=== PATIENT | male | born 1975 | race Caucasian/White ===

== ENCOUNTER 2016-09-13 21:36 | Emergency (ER) | payer BC ==
[2016-09-13 22:01] VITALS: BP 128/85
--- NOTE | 2016-09-13 22:49 | UC ---
Headache HPI - HPI Summary HPI Summary: The patient comes in today for: 1. Headache: Onset: 2-3 weeks ago. Palliative/provocative: Nothing makes the pain better or worse. Quality: Throbbing. Region: Upper right tooth, or right maxillary sinus area pain. Severity: 4/10 Time: Comes and goes. Associated symptoms: FEver: None. Rhinitis: None. Nasal congestion: None Epistaxis: None. Numbness: Right lateral corner of the eye. This started up today. It comes and goes. Previous treatment: He has seen a dentist x 3 in the last 10 days and the last visit was yesterday. The patient states that his dentist did not think that he had a tooth problem and the patient has been referred to an manager data warehousing (3 weeks from now). He was started on Amoxicillin last one week ago. 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 - Allergies/Home Medications Allergies/Adverse Reactions: Allergies Allergy/AdvReac Type Severity Reaction Status Date / Time Cefaclor [From [facility]] Allergy Itching Verified 09/13/16 22:01 Morphine Allergy Itching Verified 09/13/16 22:01 Home Medications: Home Medications Amoxicillin CAP* 500 mg PO TID 09/13/16 [History Confirmed 09/13/16] PMH/Surg Hx/FS Hx/Imm Hx Previously Healthy: Yes Endocrine History Of: Denies: Diabetes, Thyroid Disease, Hyperthyroidism, Hypothyroidism, Dyslipidemia Cardiovascular History Of: Denies: Cardiac Disorders, Hypertension, Pacemaker/ICD, Myocardial Infarction , Congestive Heart Failure, Atrial Fibrillation, Deep Vein Thrombosis, Bleeding Disorders Respiratory History Of: Denies: COPD, Asthma, Bronchitis, Pneumonia, Pulmonary Embolism GI/ History Of: Denies: Gastroesophageal Reflux, Ulcer, Gastrointestinal Bleed, Gall Bladder Disease, Kidney Stones, Diverticulitis, Renal Disease, Urosepsis Neurological History Of: Denies: TIA, CVA, Dementia, Seizures, Migraine Psychological History Of: Denies: Anxiety, Depression, Bipolar Disorder, Schizophrenia, Post Traumatic Stress Disorder Cancer History Of: Denies: Lung Cancer, Colorectal Cancer, Breast Cancer, Prostate Cancer, Cervical Cancer Other History Of: Negative For: HIV, Hepatitis B, Hepatitis C, Anticoagulant Therapy - Surgical History Surgical History: Yes Surgery Procedure, Year, and Place: TONSILS 2007 - Family History Known Family History: Positive: Cardiac Disease, Hypertension - Social History Occupation: Employed Full-time Alcohol Use: None Substance Use Type: None Smoking Status (MU): Never Smoked Tobacco Review of Systems Constitutional: Negative Skin: Negative Eyes: Negative ENT: Negative Respiratory: Negative Cardiovascular: Negative Gastrointestinal: Negative Genitourinary: Negative Musculoskeletal: Arthralgia, Myalgia All Other Systems Reviewed And Are Negative: Yes Physical Exam Triage Information Reviewed: Yes Appearance: Well-Appearing, No Pain Distress, Thin Vital Signs: Initial Vital Signs Temp 99 F 09/13/16 21:58 Pulse 71 09/13/16 21:58 Resp 16 09/13/16 21:58 BP 128/85 09/13/16 21:58 Pulse Ox 100 09/13/16 21:58 Vital Signs Reviewed: Yes Eyes: Positive: Conjunctiva Clear. Negative: Discharge ENT: Positive: Hearing grossly normal, Other: - No tenderness to palpation of the right side of the head. There is no percussion tenderness of lesions of the oral cavity. There is slight clicking of the TMJ bilaterally, but no tenderness to palpation of either joint. There is transillumication of the frontal and maxillary sinuses.. Negative: Pharyngeal erythema, Nasal congestion , Nasal drainage, TM bulging, TM dull, TM red, Tonsillar swelling, Tonsillar exudate Dental: Negative: Gross Decay/Caries @, Dental Fracture @ Neck: Positive: Supple, Nontender, No Lymphadenopathy. Negative: Nuchal Rigidity Respiratory: Positive: Lungs clear, No respiratory distress, No accessory muscle use. Negative: Rhonchi, Wheezing Cardiovascular: Positive: RRR, No Murmur Abdomen Description: Positive: Nontender, No Organomegaly, Soft. Negative: Distended, Guarding Musculoskeletal: Positive: Strength Intact, ROM Intact, No Edema Neurological: Positive: Alert, Muscle Tone Normal Psychological: Positive: Normal Response To Family, Age Appropriate Behavior, Consolable Skin: Negative: rashes, breakdown Headache Course/Dx - Differential Dx/Diagnosis Provider Diagnoses: Cephalgia, right side of head. Discharge - Discharge Plan Condition: Stable Disposition: HOME Patient Education Materials: General Headache (ED) Referrals: Raphael Serrano MD [Primary Care Provider] - Wisam Flood MD [Medical Doctor] - As Soon As Possible (Please contact Dr. Flood's office as soon as you can for an appointment.)
[2016-09-13] MEDS ORDERED: Naproxen TAB* 250 MG PO ONE (23:09)
== END 2016-09-13 23:16 | disposition home or self-care (01) ==
LOC: UCEAST 21:36
DX: R51 Headache (principal); Z88.5 Allergy status to narcotic agent; Z88.1 Allergy status to other antibiotic agents
CPT/HCPCS: 99212; A9270-GY; G0463

== ENCOUNTER 2017-01-16 17:06 | Emergency (ER) | payer BC ==
[2017-01-16 17:22] VITALS: BP 128/77
--- NOTE | 2017-01-16 17:36 | UC ---
Lower Extremity/Ankle HPI - HPI Summary HPI Summary: right calf pain---getting worse over the past few days, no recent travel never had anything similar - History of Current Complaint Chief Complaint: UCLowerExtremity Stated Complaint: LEG INJURY Time Seen by Provider: 01/16/17 17:26 Hx Obtained From: Patient Onset/Duration: Sudden Onset, Lasting Days, Still Present, Worse Since - yesterday Severity Initially: Moderate Severity Currently: Moderate Pain Intensity: 7 Pain Scale Used: 0-10 Numeric Aggravating Factor(s): Standing, Ambulation Alleviating Factor(s): Rest Able to Bear Weight: Yes - with pain - Allergies/Home Medications Allergies/Adverse Reactions: Allergies Allergy/AdvReac Type Severity Reaction Status Date / Time Cefaclor [From Ceclor] Allergy Itching Verified 01/16/17 17:23 Morphine Allergy Itching Verified 01/16/17 17:23 Home Medications: Home Medications Ibuprofen TAB* [Motrin TAB* 600 MG] 01/16/17 [History] PMH/Surg Hx/FS Hx/Imm Hx Previously Healthy: No Endocrine History Of: Denies: Diabetes, Thyroid Disease, Hyperthyroidism, Hypothyroidism, Dyslipidemia Cardiovascular History Of: Denies: Cardiac Disorders, Hypertension, Pacemaker/ICD, Myocardial Infarction , Congestive Heart Failure, Atrial Fibrillation, Deep Vein Thrombosis, Bleeding Disorders Respiratory History Of: Denies: COPD, Asthma, Bronchitis, Pneumonia, Pulmonary Embolism GI/ History Of: Denies: Gastroesophageal Reflux, Ulcer, Gastrointestinal Bleed, Gall Bladder Disease, Kidney Stones, Diverticulitis, Renal Disease, Urosepsis Neurological History Of: Denies: TIA, CVA, Dementia, Seizures, Migraine Psychological History Of: Denies: Anxiety, Depression, Bipolar Disorder, Schizophrenia, Post Traumatic Stress Disorder Cancer History Of: Denies: Lung Cancer, Colorectal Cancer, Breast Cancer, Prostate Cancer, Cervical Cancer Other History Of: Negative For: HIV, Hepatitis B, Hepatitis C, Anticoagulant Therapy - Surgical History Surgical History: Yes Surgery Procedure, Year, and Place: TONSILS - Family History Known Family History: Positive: Cardiac Disease, Hypertension, Other - ITP, Breast Cancer - Social History Occupation: Employed Full-time Lives: With Family Alcohol Use: None Substance Use Type: None Smoking Status (MU): Never Smoked Tobacco Review of Systems Constitutional: Negative Skin: Negative Eyes: Negative ENT: Negative Respiratory: Negative Cardiovascular: Negative Gastrointestinal: Negative Genitourinary: Negative Motor: Negative Neurovascular: Negative Musculoskeletal: Myalgia - right posterior calf pain Neurological: Negative Psychological: Negative All Other Systems Reviewed And Are Negative: Yes Physical Exam Triage Information Reviewed: Yes Appearance: Well-Appearing, No Pain Distress, Well-Nourished Vital Signs: Initial Vital Signs Temp 98.1 F 01/16/17 17:19 Pulse 62 01/16/17 17:19 Resp 12 01/16/17 17:19 BP 128/77 01/16/17 17:19 Pulse Ox 99 01/16/17 17:19 Eye Exam: Normal Eyes: Positive: Conjunctiva Clear ENT Exam: Normal ENT: Positive: Normal ENT inspection, Hearing grossly normal, Pharynx normal, TMs normal. Negative: Nasal congestion, Nasal drainage, Tonsillar swelling, Tonsillar exudate, Trismus, Muffled/hoarse voice Dental Exam: Normal Neck exam: Normal Neck: Positive: Supple, Nontender, No Lymphadenopathy Respiratory Exam: Normal Respiratory: Positive: Chest non-tender, Lungs clear, Normal breath sounds, No respiratory distress, No accessory muscle use Cardiovascular Exam: Normal Cardiovascular: Positive: RRR, No Murmur, Pulses Normal, Brisk Capillary Refill Musculoskeletal Exam: Normal Musculoskeletal: Positive: Strength Intact, ROM Intact, No Edema Neurological Exam: Normal Neurological: Positive: Alert, Muscle Tone Normal Psychological Exam: Normal Skin Exam: Normal Lower Extremity Course/Dx - Course Course Of Treatment: trasfer to ed for higher level of care - Differential Dx/Diagnosis Differential Diagnosis/HQI/PQRI: Contusion, DVT, Fracture (Closed), Sprain, Strain Provider Diagnoses: Right Calf Pain - Physician Notifications Discussed Patient Care With: Dr. Daugherty Time Discussed With Above Provider: 17:40 Instructed by Provider To: Transfer Discharge - Discharge Plan Condition: Stable Disposition: TRANS [facility] Referrals: Raphael Serrano MD [Primary Care Provider] -
== END 2017-01-16 17:44 | disposition short-term general hospital (02) ==
LOC: UCEAST 17:06
DX: M79.661 Pain in right lower leg (principal); Z88.1 Allergy status to other antibiotic agents; Z88.5 Allergy status to narcotic agent
CPT/HCPCS: 99212; G0463

== ENCOUNTER 2017-01-16 18:04 | Emergency (ER) | payer BC ==
--- NOTE | 2017-01-16 20:27 | RAD ---
HISTORY: 2 days of right calf pain with running. TECHNIQUE: Multiple transverse and longitudinal ultrasound images were obtained of the veins of the right lower extremity using grayscale, color Doppler, and spectral Doppler imaging with and without compression and with augmentation. FINDINGS: VEINS: The common femoral vein, deep femoral vein, femoral vein and popliteal vein are compressible throughout their course, with normal flow on color Doppler imaging and normal response to augmentation on spectral Doppler imaging. SOFT TISSUES: A 4 x 6 mm fluid collection is noted immediately posterior to the distal Achilles tendon. IMPRESSION: 1. No sonographic evidence of deep vein thrombosis. 2. Small focus of free fluid adjacent to the distal Achilles tendon. Please correlate to physical examination in this runner.
[2017-01-16 20:39] VITALS: BP 130/90
--- NOTE | 2017-01-16 20:39 | ED ---
Lower Extremity - HPI Summary HPI Summary: 41 male presents from urgent care with complaints of lower right leg pain that began 2 days ago and worsened last night. Patient was sent here to rule out DVT. Patient is a very healthy terell who runs long distance daily. He has had chronic previous issues with both achilles tendons and lower leg muscles. He admits to this episode's pain being worse, more diffusely in his posterior calf and swelling that has resolved some, just in his right lower leg, since yesterday. Patient knows of a friend how just from a undiagnosed PE. He has been taking Advil which does help with the pain and swelling. He is concerned he may have some. He also admits to some chest tightness that comes and goes however he admits to being anxious and relates it to that. Denies SOB and difficulty breathing. Is able to walk and bear weight. Running makes pain worse. Denies numbness/tingling and erythema. Denies any PMHx. He is vegan. - History of Current Complaint Chief Complaint: EDExtremityLower Stated Complaint: R/O DVT-SENT FROM [facility] Time Seen by Provider: 01/16/17 18:58 Hx Obtained From: Patient Mechanism Of Injury: Unknown - running, overuse Onset of Pain: Immediate Onset/Duration: Days Severity Initially: Mild Severity Currently: Mild Pain Intensity: 5 Pain Scale Used: 0-10 Numeric Timing: Constant Location: Is Discrete @ - lower right calf, leg Character Of Pain: Sharp, Aching Associated Signs And Symptoms: Positive: Swelling Aggravating Factor(s): Standing, Ambulation Alleviating Factor(s): Rest Able to Bear Weight: Yes - Allergies/Home Medications Allergies/Adverse Reactions: Allergies Allergy/AdvReac Type Severity Reaction Status Date / Time Cefaclor [From [facility]] Allergy Itching Verified 01/16/17 17:23 Morphine Allergy Itching Verified 01/16/17 17:23 PMH/Surg Hx/FS Hx/Imm Hx Endocrine/Hematology History: Denies: Hx Anticoagulant Therapy, Hx Diabetes, Hx Thyroid Disease Cardiovascular History: Denies: Hx Congestive Heart Failure, Hx Deep Vein Thrombosis, Hx Hypercholesterolemia, Hx Hypertension, Hx Myocardial Infarction, Hx Pacemaker/ ICD, Hx Peripheral Vascular Disease Respiratory History: Denies: Hx Asthma, Hx Chronic Obstructive Pulmonary Disease (COPD), Hx Lung Cancer, Hx Pneumonia, Hx Pulmonary Embolism GI History: Denies: Hx Gall Bladder Disease, Hx Gastrointestinal Bleed, Hx Ulcer, Hx Urosepsis History: Denies: Hx Kidney Stones, Hx Renal Disease Musculoskeletal History: Denies: Hx Arthritis, Hx Rheumatoid Arthritis, Hx Osteoporosis Sensory History: Denies: Hx Cataracts, Hx Contacts or Glasses, Hx Glaucoma, Hx Hearing Aid Opthamlomology History: Denies: Hx Cataracts, Hx Contacts or Glasses, Hx Glaucoma Neurological History: Denies: Hx Dementia, Hx Headaches, Hx Migraine, Hx Seizures, Hx Transient Ischemic Attacks (TIA) Psychiatric History: Denies: Hx Anxiety, Hx Depression, Hx Panic Disorder, Hx Schizophrenia, Hx Bipolar Disorder - Surgical History Surgery Procedure, Year, and Place: TONSILS Infectious Disease History: No Infectious Disease History: Denies: Traveled Outside the [place] in Last 30 Days - Family History Known Family History: Positive: Cardiac Disease, Hypertension - Social History Alcohol Use: None Hx Substance Use: No Substance Use Type: Reports: None Hx Tobacco Use: No Smoking Status (MU): Never Smoked Tobacco Review of Systems Constitutional: Negative Cardiovascular: Negative Respiratory: Negative Gastrointestinal: Negative Positive: Arthralgia, Myalgia, Edema - right lower leg Skin: Negative Neurological: Negative All Other Systems Reviewed And Are Negative: Yes Physical Exam Triage Information Reviewed: Yes Vital Signs On Initial Exam: Initial Vitals Temp Pulse Resp BP Pulse Ox 98.2 F 58 18 132/80 100 01/16/17 18:08 01/16/17 18:08 01/16/17 18:08 01/16/17 18:08 01/16/17 18:08 not tachy and not hypoxic Vital Signs Reviewed: Yes Appearance: Positive: Well-Appearing, No Pain Distress, Well-Nourished, Thin Skin: Positive: Warm, Skin Color Reflects Adequate Perfusion, Dry. Negative: Cold, Numb, Cyanosis @, Erythema @ Head/Face: Positive: Normal Head/Face Inspection Eyes: Positive: Normal, Conjunctiva Clear ENT: Positive: Normal ENT inspection, Hearing grossly normal Neck: Positive: Supple, Nontender Respiratory/Lung Sounds: Positive: Clear to Auscultation, Breath Sounds Present. Negative: Decreased Breath Sounds, Rales, Rhonchi, Stridor, Wheezes Cardiovascular: Positive: Normal, RRR, Pulses are Symmetrical in both Upper and Lower Extremities - 2+ pedal b/l, Leg Edema Right - minmal edema when compared to left. Negative: Murmur, Rub, Leg Edema Left Abdomen Description: Positive: Nontender, Soft Bowel Sounds: Positive: Present Musculoskeletal: Positive: Normal, Strength/ROM Intact, Pain @ - some discomfort on palpation of lower posterior calf and achilles, and with flexion. (-)butts test, achilles tendon intact. Negative: Limited @, Interruption @, Fauzia Sign Left, Fauzia Sign Right, Edema Left, Edema Right Neurological: Positive: Normal, Sensory/Motor Intact, Alert, Oriented to Person Place, Time, CN Intact II-III, Reflexes Intact, NV Bundle Intact Distally, Normal Gait Psychiatric: Positive: Normal Diagnostics - Vital Signs Vital Signs Temp Pulse Resp BP Pulse Ox 01/16/17 18:12 98.2 F 59 18 132/80 100 01/16/17 18:08 98.2 F 58 18 132/80 100 - Laboratory Result Diagrams: 01/16/17 20:35 01/16/17 20:35 Lab Statement: Any lab studies that have been ordered have been reviewed, and results considered in the medical decision making process. - Ultrasound No standard instances Ultrasound Interpretation: Positive (See Comments) - 1. No sonographic evidence of deep vein thrombosis. 2. Small focus of free fluid adjacent to the distal Achilles tendon. Please correlate to physical examination in this runner. Ultrasound Interpretation Completed By: Radiologist - EKG EKG Cardiac Rate: NL EKG Rhythm: Sinus Rhythm ST Segment: Normal Ectopy: None EKG Interpretation: NSR EKG Comparison: No Significant Change Lower Extremity Course/Dx - Course Course Of Treatment: patient did not want anything for pain at this time. US obtained and negative for DVT. Did show some free fluid distal lower right leg, patient did have previous injury and runs alot. Due to patient's concern and with complains of chest tightness, D-Dimer and EKG obtained. Both normal. Continue use of NSAIDs, rest, ice and elevate. Refrain from strenuous phyical activity and running. Aware of worening signs and symptoms. Follow up PCP. - Diagnoses Differential Diagnosis/HQI/PQRI: Positive: Arthritis, Contusion, DVT, Sprain, Strain, Tendonitis Provider Diagnoses: Lower leg pain, Tendonitis Discharge - Discharge Plan Condition: Stable Disposition: HOME Patient Education Materials: Tendinitis (ED), Leg Pain (ED) Referrals: Raphael Serrano MD [Primary Care Provider] - Additional Instructions: Take NSAIDs such as Aleve or Advil to help with pain and inflammation for the next week. Take with food to avoid upset stomach. Rest, elevated and ice the leg. Try warm compresses after 5 days of icing. Refrain from running until symptoms subside. I'd give it at least 1 week. If your symptoms persist or worsen follow up with PCP for further evaluation and imaging.
[2017-01-16 20:44] LABS: Hematocrit 47 % (42-52); Hemoglobin 15.9 g/dl (14.0-18.0); Mean Corpuscular HGB Conc 34 g/dl (31-36); Mean Corpuscular Hemoglobin 31 pg (27-31); Mean Corpuscular Volume 92 fL (80-94); Mean Platelet Volume 9 um3 (7.4-10.4); Red Blood Count 5.06 10^6/ul (4.0-5.4); Red Cell Distribution Width 13 % (10.5-15); White Blood Count 5.3 10^3/ul (3.5-10.8)
[2017-01-16 20:58] LABS: Albumin 4.5 g/dL (3.2-5.2); BUN/Creatinine Ratio 11.6 (8-20); Calcium 9.6 mg/dL (8.6-10.3); Globulin 2.5 g/dL (2-4); Potassium 3.8 mmol/L (3.5-5.0); Total Bilirubin 0.9 mg/dL (0.2-1.0)
== END 2017-01-16 21:09 | disposition home or self-care (01) ==
LOC: ED 18:04
DX: M79.661 Pain in right lower leg (principal); M77.9 Enthesopathy, unspecified
CPT/HCPCS: 36415; 80053; 85025; 85379; 93005; 99282

== ENCOUNTER 2017-03-10 21:08 | Emergency (ER) | payer BC ==
[2017-03-10 21:17] VITALS: BP 117/74
[2017-03-10] MEDS ORDERED: Tetracaine 0.5% OPTH.SOL 4 ML* 1 DROP BTL ONE (21:32)
[2017-03-10] MEDS ORDERED: Fluorescein Sodium TOPICAL* 1 MG TEST OPHTHALMIC ONE (21:32)
[2017-03-10] MEDS ORDERED: BSS OPTH.SOL* BTL OPHTHALMIC ONE (21:42)
--- NOTE | 2017-03-10 22:35 | UC ---
Eye Complaint HPI - HPI Summary HPI Summary: feels he may have a fb in right eye - History of Current Complaint Hx Obtained From: Patient Onset/Duration: Sudden Onset Timing: Constant Severity Initially: Mild Location of Injury: Conjunctiva Character: Foreign Body Sensation Aggravating Factor(s): Nothing Alleviating Factor(s): Nothing Associated Signs And Symptoms: Positive: Negative <Penelope Arellano - Last Filed: 03/13/17 08:29> <Gregoria Portillo - Last Filed: 03/13/17 08:40> - History of Current Complaint Chief Complaint: UCEye Stated Complaint: FB IN EYE Time Seen by Provider: 03/10/17 21:41 - Allergies/Home Medications Allergies/Adverse Reactions: Allergies Allergy/AdvReac Type Severity Reaction Status Date / Time Cefaclor [From Ceclor] Allergy Itching Verified 01/16/17 17:23 Morphine Allergy Itching Verified 01/16/17 17:23 PMH/Surg Hx/FS Hx/Imm Hx Previously Healthy: Yes Other History Of: Negative For: HIV, Hepatitis B, Hepatitis C, Anticoagulant Therapy - Surgical History Surgical History: Yes Surgery Procedure, Year, and Place: TONSILS - Family History Known Family History: Positive: Cardiac Disease, Hypertension, Other - ITP, Breast Cancer - Social History Occupation: Employed Full-time Lives: With Family Alcohol Use: None Substance Use Type: None Smoking Status (MU): Never Smoked Tobacco <Penelope Arellano - Last Filed: 03/13/17 08:29> Review of Systems Constitutional: Negative Skin: Negative Eyes: Negative ENT: Negative Respiratory: Negative Cardiovascular: Negative Gastrointestinal: Negative Genitourinary: Negative Motor: Negative Neurovascular: Negative Musculoskeletal: Negative Neurological: Negative Psychological: Negative All Other Systems Reviewed And Are Negative: Yes <Penelope Arellano - Last Filed: 03/13/17 08:29> Physical Exam Triage Information Reviewed: Yes Appearance: Well-Appearing, No Pain Distress, Well-Nourished Vital Signs: Initial Vital Signs Temp 98.5 F 03/10/17 21:15 Pulse 66 03/10/17 21:15 Resp 18 03/10/17 21:15 BP 117/74 03/10/17 21:15 Pulse Ox 100 03/10/17 21:15 Vital Signs Reviewed: Yes Eye Exam: Normal Eyes: Positive: Conjunctiva Clear, Other: - no stained and lid flipped no FB observed does have a mucocele in medial Upper globe ENT Exam: Normal ENT: Positive: Normal ENT inspection, Hearing grossly normal. Negative: Nasal congestion, Nasal drainage, Trismus, Muffled/hoarse voice Dental Exam: Normal Neck exam: Normal Neck: Positive: 1 Respiratory Exam: Normal Respiratory: Positive: Chest non-tender, No respiratory distress, No accessory muscle use Cardiovascular Exam: Normal Cardiovascular: Positive: RRR, Pulses Normal, Brisk Capillary Refill Musculoskeletal Exam: Normal Musculoskeletal: Positive: Strength Intact, ROM Intact, No Edema Neurological Exam: Normal Neurological: Positive: Alert, Muscle Tone Normal Psychological Exam: Normal Skin Exam: Normal <Penelope Arellano - Last Filed: 03/13/17 08:29> Vital Signs: Initial Vital Signs Temp 98.5 F 03/10/17 21:15 Pulse 66 03/10/17 21:15 Resp 18 03/10/17 21:15 BP 117/74 03/10/17 21:15 Pulse Ox 100 03/10/17 21:15 <Gregoria Portillo - Last Filed: 03/13/17 08:40> Eye Complaint Course/Dx - Course Course Of Treatment: moistening eye dropps follow with opthomology this week as needed - Differential Dx/Diagnosis Differential Diagnosis/HQI/PQRI: Corneal Abrasion, Penetrating Injury, Orbital Cellulitis, Other - OD mucocele Provider Diagnoses: OD Mucocele <Penelope Arellano - Last Filed: 03/13/17 08:29> Discharge <Penelope Arellano - Last Filed: 03/13/17 08:29> <Gregoria Portillo - Last Filed: 03/13/17 08:40> - Discharge Plan Condition: Stable Disposition: HOME Patient Education Materials: Ibuprofen (By mouth), Eye Foreign Body (ED) Referrals: Wesley Sims MD [Medical Doctor] - If Needed Attestation Statement User Type: Provider - I was available for consult. This patient was seen by the CHRISTIAN. The patient was not presented to, seen by, or examined by me. -Nu <Gregoria Portillo - Last Filed: 03/13/17 08:40>
== END 2017-03-10 22:44 | disposition home or self-care (01) ==
LOC: UCEAST 21:08
DX: H04 Disorders of lacrimal system (principal); Z88.1 Allergy status to other antibiotic agents; Z88.5 Allergy status to narcotic agent
CPT/HCPCS: 99211; A9270-GY; G0463

== ENCOUNTER 2017-09-17 16:31 | Emergency (ER) | payer BC ==
[2017-09-17 19:52] VITALS: BP 119/77
--- NOTE | 2017-09-18 07:01 | ED ---
Gonzalez Fernandes Angela, scribed for Sebas Morley MD on 09/17/17 at 1917 . Headache - HPI Summary HPI Summary: This pt is a 41 y/[facility] headache for the past week. Pt reports he was in [facility] for 10 days, and returned home 8 days ago. He states the first time he had a headache, it was in [facility]. [place] and used insect repellent. He describes his headache as a shooting pain on his temples which lasted for a few seconds. Pt notes that he has had more intermittent headaches since then, with more frequency in "different parts" of his head bilaterally. He additionally states he gets dizzy when closing his eyes. Pt currently denies any headache or dizziness. He denies fever, rash, sinus tenderness. Pt reports he hurt his neck when going down a water slide in [facility]. He notes he was trying to get it back into place in [facility], but his neck pain was aggravated from this injury. He has a history of neck "coming out of adjustment." Pt has seen physical therapist and chiropractor. He had an adjustment of his neck last year. Last year, he states he had pain in his face and teeth with numbness, exclusively on the right side but it resolved on its own. Pt had a recent MRI done which resulted negative. No sinus tenderness currently. - History Of Current Complaint Chief Complaint: EDHeadache Stated Complaint: HEADACHE/DIZZY Time Seen by Provider: 09/17/17 19:02 Hx Obtained From: Patient Onset/Duration: Started days ago, Still Present Timing: Intermittent, Lasting: - seconds Character: Sharp - shooting Location of Headache: Diffuse Aggravating Factor: Nothing Allevating Factors: Nothing Associated Signs And Symptoms: Dizziness - when closing eyes - Allergies/Home Medications Allergies/Adverse Reactions: Allergies Allergy/AdvReac Type Severity Reaction Status Date / Time Cefaclor [From [facility]] Allergy Itching Verified 01/16/17 17:23 Morphine Allergy Itching Verified 01/16/17 17:23 PMH/Surg Hx/FS Hx/Imm Hx Endocrine/Hematology History: Denies: Hx Anticoagulant Therapy, Hx Diabetes, Hx Thyroid Disease Cardiovascular History: Denies: Hx Congestive Heart Failure, Hx Deep Vein Thrombosis, Hx Hypercholesterolemia, Hx Hypertension, Hx Myocardial Infarction, Hx Pacemaker/ ICD, Hx Peripheral Vascular Disease Respiratory History: Denies: Hx Asthma, Hx Chronic Obstructive Pulmonary Disease (COPD), Hx Lung Cancer, Hx Pneumonia, Hx Pulmonary Embolism GI History: Denies: Hx Gall Bladder Disease, Hx Gastrointestinal Bleed, Hx Ulcer, Hx Urosepsis History: Denies: Hx Kidney Stones, Hx Renal Disease Musculoskeletal History: Denies: Hx Arthritis, Hx Rheumatoid Arthritis, Hx Osteoporosis Sensory History: Denies: Hx Cataracts, Hx Contacts or Glasses, Hx Glaucoma, Hx Hearing Aid Opthamlomology History: Denies: Hx Cataracts, Hx Contacts or Glasses, Hx Glaucoma Neurological History: Denies: Hx Dementia, Hx Headaches, Hx Migraine, Hx Seizures, Hx Transient Ischemic Attacks (TIA) Psychiatric History: Denies: Hx Anxiety, Hx Depression, Hx Panic Disorder, Hx Schizophrenia, Hx Bipolar Disorder - Surgical History Surgery Procedure, Year, and Place: TONSILS Infectious Disease History: No Infectious Disease History: Reports: Traveled Outside the in Last 30 Days - [facility] - Family History Known Family History: Positive: Cardiac Disease, Hypertension, Other - ITP, Breast Cancer - Social History Alcohol Use: None Hx Substance Use: No Substance Use Type: Reports: None Hx Tobacco Use: No Smoking Status (MU): Never Smoked Tobacco Review of Systems Negative: Fever, Chills Respiratory: Negative Gastrointestinal: Negative Negative: Rash Neurological: Other - NEG: dizziness Negative: Headache, Numbness All Other Systems Reviewed And Are Negative: Yes Physical Exam - Summary Physical Exam Summary: Appearance: Well appearing, no pain distress Skin: warm, dry, reflects adequate perfusion Head/face: normal. No sinus tenderness. Eyes: EOMI, GRABIEL. ENT: normal Neck: supple, non-tender. Full ROM. No crepitance. Respiratory: CTA, breath sounds present Cardiovascular: RRR, pulses symmetrical Abdomen: non-tender, soft Bowel: present Musculoskeletal: normal, strength/ROM intact Neuro: normal, sensory motor intact, A&Ox3 Triage Information Reviewed: Yes Vital Signs On Initial Exam: Initial Vitals Temp Pulse Resp BP Pulse Ox 98.8 F 72 16 121/80 99 09/17/17 17:34 09/17/17 17:34 09/17/17 17:34 09/17/17 17:34 09/17/17 17:34 Vital Signs Reviewed: Yes Diagnostics - Vital Signs Vital Signs Temp Pulse Resp BP Pulse Ox 09/17/17 17:34 98.8 F 72 16 121/80 99 - Laboratory Lab Statement: Any lab studies that have been ordered have been reviewed, and results considered in the medical decision making process. Headache Course/Dx - Course Course Of Treatment: pt with sharp facial or head pain lasting only seconds. No injury. No fever but recent travel to [facility]. Dengue and Lyme added here. Had recent MRIs of brain etc for similar R sided facial pains. No pain here. F/ U closely with PMD and referred to neurology. - Diagnoses Provider Diagnoses: Nonspecific headache Discharge - Discharge Plan Condition: Good Disposition: HOME Patient Education Materials: Acute Headache (ED), Cervical Radiculopathy (ED) Referrals: Larissa Mendez MD [Medical Doctor] - Raphael Serrano MD [Primary Care Provider] - Additional Instructions: Call for appt with the neurologist provided. Call your doctor in the morning for reevaluation and for possibly obtaining MRI of head/neck Hydrated. Ibuprofen as needed Return with fever, vomiting, increased pain, worse, new symptoms or other concerns as discussed. The documentation as recorded by the Gonzalez ramirez Angela accurately reflects the service I personally performed and the decisions made by , Sebas Morley MD.
== END 2017-09-17 19:54 | disposition home or self-care (01) ==
LOC: ED 16:31
DX: R51 Headache (principal)
CPT/HCPCS: 86790; 87798; 99282

== ENCOUNTER 2017-09-22 08:16 | Emergency (ER) | payer BC ==
--- NOTE | 2017-09-22 09:38 | ED ---
Headache - HPI Summary HPI Summary: 41 y/o male presents to [facility] with c/o intermittent headache for the past 2 weeks. Pt reports he was in [facility] for 10 days, and returned home 8 days ago. He states the first time he had a headache, it was in [facility]. [place] and used insect repellent. He describes his headache as a shooting pain that is in random areas throughout head, which only last for a few seconds. Pt notes that he has had more intermittent headaches since then, with more frequency in "different parts " of his head bilaterally. He additionally states he gets dizzy when closing his eyes. Pt currently denies any headache or dizziness. He denies fever, rash, sinus tenderness. He has a history of neck "coming out of adjustment." Pt has seen physical therapist and chiropractor. He had an adjustment of his neck last year. Also had neurology and ENT consult last year with MRI without abnormal findings for similar symptoms a year ago. States the pain he had last year was pain in his face and teeth with numbness, exclusively on the right side but it resolved on its own. Patient states he was here 5 days ago and sent home without abnormal findings, however returns today because he experienced a numbness/tingling sensation in the left side of his neck and ear, that has since resolved however it made him very nervous. States he called the neurologist and PCP and is unable to get in until October, and he feels that is not soon enough. Described his dizziness/vision to be "fluttery". No other complaints. Otherwise healthy without PMHx. No medications. No nausea/vomiting. Nothing makes it better or worse. - History Of Current Complaint Chief Complaint: EDNeurologicalDeficit Stated Complaint: HEADACHE Time Seen by Provider: 09/22/17 08:25 Hx Obtained From: Patient Onset/Duration: Sudden Onset, Started weeks ago, Still Present Currently Pain Is: Current Pain Scale(0-10)= - 0 Timing: Intermittent, Lasting:, Seconds Character: Sharp Location of Headache: Other: - differnt locations each episode Aggravating Factor: Nothing Allevating Factors: Nothing Associated Signs And Symptoms: Dizziness, Visual Changes - "fluttery/dizzy" at times - Risk Factors SAH Risk Factors: Negative Meningitis Risk Factors: Negative SDH Risk Factors: Negative Temporal Arteritis Risk Factors: Negative - Allergies/Home Medications Allergies/Adverse Reactions: Allergies Allergy/AdvReac Type Severity Reaction Status Date / Time MS Cefaclor [From Ceclor] Allergy Itching Verified 01/16/17 17:23 MS Morphine [Morphine] Allergy Itching Verified 01/16/17 17:23 PMH/Surg Hx/FS Hx/Imm Hx Endocrine/Hematology History: Denies: Hx Anticoagulant Therapy, Hx Diabetes, Hx Thyroid Disease Cardiovascular History: Denies: Hx Congestive Heart Failure, Hx Deep Vein Thrombosis, Hx Hypercholesterolemia, Hx Hypertension, Hx Myocardial Infarction, Hx Pacemaker/ ICD, Hx Peripheral Vascular Disease Respiratory History: Denies: Hx Asthma, Hx Chronic Obstructive Pulmonary Disease (COPD), Hx Lung Cancer, Hx Pneumonia, Hx Pulmonary Embolism GI History: Denies: Hx Gall Bladder Disease, Hx Gastrointestinal Bleed, Hx Ulcer, Hx Urosepsis History: Denies: Hx Kidney Stones, Hx Renal Disease Musculoskeletal History: Denies: Hx Arthritis, Hx Rheumatoid Arthritis, Hx Osteoporosis Sensory History: Denies: Hx Cataracts, Hx Contacts or Glasses, Hx Glaucoma, Hx Hearing Aid Opthamlomology History: Denies: Hx Cataracts, Hx Contacts or Glasses, Hx Glaucoma Neurological History: Denies: Hx Dementia, Hx Headaches, Hx Migraine, Hx Seizures, Hx Transient Ischemic Attacks (TIA) Psychiatric History: Denies: Hx Anxiety, Hx Depression, Hx Panic Disorder, Hx Schizophrenia, Hx Bipolar Disorder - Surgical History Surgery Procedure, Year, and Place: TONSILS - Immunization History Immunizations Up to Date: Yes Infectious Disease History: No Infectious Disease History: Denies: Traveled Outside the [place] in Last 30 Days - Family History Known Family History: Positive: Cardiac Disease, Hypertension, Other - ITP, Breast Cancer - Social History Alcohol Use: None Hx Substance Use: No Substance Use Type: Reports: None Hx Tobacco Use: No Smoking Status (MU): Never Smoked Tobacco Review of Systems Constitutional: Negative Positive: Other - vision is sometimes "fluttery" when closing his eyes Cardiovascular: Negative Respiratory: Negative Gastrointestinal: Negative Neurological: Other - dizziness Positive: Headache, Paresthesia - left neck All Other Systems Reviewed And Are Negative: Yes Physical Exam Triage Information Reviewed: Yes Vital Signs On Initial Exam: Initial Vitals Temp Pulse Resp BP Pulse Ox 97.9 F 81 18 142/97 100 09/22/17 08:17 09/22/17 08:17 09/22/17 08:17 09/22/17 08:17 09/22/17 08:17 Vital Signs Reviewed: Yes Appearance: Positive: Well-Appearing, No Pain Distress, Well-Nourished Skin: Positive: Warm, Skin Color Reflects Adequate Perfusion, Dry. Negative: Cold, Soft, Diaphoretic, Pale Head/Face: Positive: Normal Head/Face Inspection. Negative: Scalp Eyes: Positive: Normal, EOMI, GRABIEL, Conjunctiva Clear ENT: Positive: Pharynx normal Dental: Negative: Percussion Tenderness @, Gross Decay/Caries @, Dental Fracture @ Neck: Positive: Supple, Nontender, No Lymphadenopathy Respiratory/Lung Sounds: Positive: Clear to Auscultation, Breath Sounds Present. Negative: Decreased Breath Sounds, Rales, Rhonchi, Wheezes Cardiovascular: Positive: Normal, RRR, Pulses are Symmetrical in both Upper and Lower Extremities. Negative: Murmur, Rub Abdomen Description: Positive: Nontender, No Organomegaly Bowel Sounds: Positive: Present Musculoskeletal: Positive: Normal, Strength/ROM Intact. Negative: Limited @, Interruption @, Abnormal @, Pain @ Neurological: Positive: Normal - memory and cocentration intact, normal neuro exam, Sensory/Motor Intact, Alert, Oriented to Person Place, Time, CN Intact II- III, NV Bundle Intact Distally, Normal Gait, Heel to Toe - normal, Finger to Nose - normal, Facial Symmetry, Speech Normal. Negative: Rhomberg - negative - [place] Coma Scale Best Eye Response: 4 - Spontaneous Best Motor Response: 6 - Obeys Commands Best Verbal Response: 5 - Oriented Coma Scale Total: 15 Diagnostics - Vital Signs Vital Signs Temp Pulse Resp BP Pulse Ox 09/22/17 08:17 97.9 F 81 18 142/97 100 - Laboratory Result Diagrams: 09/22/17 09:50 09/22/17 09:50 Lab Statement: Any lab studies that have been ordered have been reviewed, and results considered in the medical decision making process. Headache Course/Dx - Course Course Of Treatment: CTA head and neck and labs obtained due to patient concern/ request. All without abnormal findings. Patient comfortable without abnormal PE findings or vitals and no pain throughout stay in ED. Patient was worried about tumors, CVA, aneurysm etc. Completely normal neuro exam without deficit. Patient educated on possible cause of symptoms being from complex migraine/non specific headache. Also educated on possible muscular tension or cervical radiculopathy etiology. Recommend further evaluation and work up outpatient as emergent etiologies eliminated at this time. Patient is aware and understands. Agrees with plan. All questions thouroughly answered. Aware of worsening signs/ symptoms to watch out for (fever, deficits, increased pain etc). Also informed negative lyme and degume is still pending from visit 5 days ago. Also recommended if symptoms worsen/new develop possible infectious disease follow up may be recommended. Discuss Dr Garcia who agreed with plan. - Diagnoses Differential Diagnosis/HQI/PQRI: Migraine, Tension Headache, Other - complex migraine Provider Diagnoses: Headache - Physician Notifications Discussed Care Of Patient With: Dr Garcia Discharge - Discharge Plan Condition: Stable Disposition: HOME Patient Education Materials: Acute Headache (ED) Referrals: Raphael Serrano MD [Primary Care Provider] - Charity Kang MD [Medical Doctor] - Additional Instructions: Please follow up with PCP and neurology for further evaluation and testing. Increase fluid intake, refrain from increasing intracranial pressure (lifting), and try excedrin. Any new or worsening symptoms please seek medical attention as discussed ( increased pain, fever, vomiting, slurred speech, numbness of extremity, altered mental status, etc)
[2017-09-22 10:02] LABS: ABS Basophils 0.1 10^3/ul (0-0.2); ABS Eosinophils 0 10^3/ul (0-0.6); ABS Lymphocytes 0.8 10^3/ul (1.0-4.8); ABS Monocytes 0.4 10^3/ul (0-0.8); ABS Neutrophils 4.7 10^3/ul (1.5-7.7); ABS Nucleated RBC 0 10^3/ul; Eosinophil % 0.4 % (0-6); Hematocrit 45 % (42-52); Hemoglobin 15.7 g/dl (14.0-18.0); Lymphocyte % 13.9 % (25-47); Mean Corpuscular HGB Conc 35 g/dl (31-36); Mean Corpuscular Hemoglobin 32 pg (27-31); Mean Corpuscular Volume 91 fL (80-94); Mean Platelet Volume 8 um3 (7.4-10.4); Nucleated Red Blood Cells % 0.1; Platelet Count 200 10^3/ul (150-450); Red Blood Count 4.91 10^6/ul (4.0-5.4); Red Cell Distribution Width 13 % (10.5-15); White Blood Count 6.1 10^3/ul (3.5-10.8)
[2017-09-22 10:19] LABS: EGFR Non-African American 95.4 (>60)
[2017-09-22] MEDS ORDERED: Iohexol 350* (CONTRAST) 500 ML MDV IV ONE (10:35)
--- NOTE | 2017-09-22 11:26 | RAD ---
HISTORY: Head pain, numbness and tingling in the neck, left side of neck COMPARISONS: MRA dated January 01, 2017 TECHNIQUE: Multiple contiguous axial CT scans were obtained of the head and neck after the administration of nonionic intravenous contrast timed to the systemic arterial phase of contrast enhancement. Coronal and sagittal multiplanar reformations are submitted for review. Multiple 3-D maximum intensity projection reconstructions are also submitted for review. FINDINGS: CTA NECK: AORTIC ARCH: There is a normal three-vessel branching pattern of the aortic arch. There is no ostial or proximal stenosis of the cephalic great vessels. RIGHT VERTEBRAL ARTERY: The right vertebral artery is patent along its course, without stenosis. LEFT VERTEBRAL ARTERY: The left vertebral artery is patent along its course, without stenosis. DOMINANCE: The left vertebral artery is dominant. RIGHT COMMON CAROTID ARTERY: The right common carotid artery is patent. The right carotid bifurcation occurs at C3-C4 RIGHT INTERNAL CAROTID ARTERY: There is no right internal carotid artery stenosis by NASCET criteria. RIGHT EXTERNAL CAROTID ARTERY: The right external carotid artery is unremarkable. LEFT COMMON CAROTID ARTERY: The left common carotid artery is patent. The left carotid bifurcation occurs at C3-C4 LEFT INTERNAL CAROTID ARTERY: There is no left internal carotid artery stenosis by NASCET criteria. LEFT EXTERNAL CAROTID ARTERY: The left external carotid artery is unremarkable. VENOUS CIRCULATION: The venous system is unremarkable. SALIVARY GLANDS: The parotid glands, submandibular glands, sublingual glands are normal. NASAL CAVITY/NASOPHARYNX: The nasal cavity and nasopharynx are normal. ORAL CAVITY/OROPHARYNX: The oral cavity is obscured by streak artifact from dental amalgam. The visualized oral cavity and oropharynx are unremarkable. LARYNGEAL APPARATUS/HYPOPHARYNX: The laryngeal apparatus and hypopharynx are normal. UPPER AIRWAY/UPPER ESOPHAGUS: The visualized upper airway and esophagus are normal. LUNG APICES: The lung apices are clear. THYROID GLAND: The thyroid gland is normal. LYMPH NODES: There is no lymphadenopathy by size criteria. BONES AND SOFT TISSUES: There is a mild scoliotic curvature of the spine. CTA HEAD: INTRACRANIAL CIRCULATION: There is no aneurysm, vascular malformation, occlusion, or stenosis of the visualized intracranial circulation. The anterior communicating artery complex is clear. There is a origin of the left posterior cerebral artery. VENOUS CIRCULATION: The venous system is unremarkable. PERFUSION: There is no obvious parenchymal perfusion deficit. HEMORRHAGE/INFARCT: There is no hemorrhage or acute infarct. MASSES/SHIFT: There is no mass or shift. EXTRA-AXIAL SPACES: There are no extra-axial fluid collections. SULCI AND VENTRICLES: The sulci and ventricles are normal in size and position for the patient's stated age. CEREBRUM: There are no focal parenchymal abnormalities. BRAINSTEM: There are no focal parenchymal abnormalities. CEREBELLUM: There are no focal parenchymal abnormalities. PARANASAL SINUSES: The paranasal sinuses are clear. ORBITS: The orbits are unremarkable. BONES AND SOFT TISSUE: No bone or soft tissue abnormalities are noted. OTHER: There is no abnormal enhancement. IMPRESSION: 1. NO INTERNAL CAROTID ARTERY STENOSIS BY NASCET CRITERIA. 2. NO ANEURYSM, VASCULAR MALFORMATION, OCCLUSION, OR STENOSIS OF THE VISUALIZED INTRACRANIAL CIRCULATION. CPT II Codes: 3100F
[2017-09-22 12:23] VITALS: BP 104/64
== END 2017-09-22 11:55 | disposition home or self-care (01) ==
LOC: ED 08:16
DX: R51 Headache (principal); Z88.5 Allergy status to narcotic agent; Z88.8 Allergy status to other drugs, medicaments and biological substances
CPT/HCPCS: 36415; 70496; 70498; 80053; 85025; 85610; 99282; Q9967

== ENCOUNTER 2017-10-18 18:51 | Emergency (ER) | payer BC ==
--- NOTE | 2017-10-18 20:42 | ED ---
Lower Extremity - HPI Summary HPI Summary: 42-year-old male presents with possible right leg blood clot. He states he has been having occasionally pain in right calf. he foot has been going numbness and tingling. He states feels pulsating in his foot. He denies any swelling. He sees sometimes his foot has been cramping. He is a runner. He denies any chest pressure or SOB. He is not a smoker. He denies any family history of blood clots. He denies any recent travel or surgeries. He denies any back pain. He denies any saddle anaesthesia or loss of bowel or bladder. - History of Current Complaint Chief Complaint: EDExtremityLower Stated Complaint: POSSIBLE RT LEG BLOOD CLOT Time Seen by Provider: 10/18/17 20:31 Pain Intensity: 2 - Allergies/Home Medications Allergies/Adverse Reactions: Allergies Allergy/AdvReac Type Severity Reaction Status Date / Time cefaclor Allergy Itching Verified 10/08/17 11:37 morphine Allergy Itching Verified 10/08/17 11:37 PMH/Surg Hx/FS Hx/Imm Hx Endocrine/Hematology History: Denies: Hx Anticoagulant Therapy, Hx Diabetes, Hx Thyroid Disease Cardiovascular History: Denies: Hx Congestive Heart Failure, Hx Deep Vein Thrombosis, Hx Hypercholesterolemia, Hx Hypertension, Hx Myocardial Infarction, Hx Pacemaker/ ICD, Hx Peripheral Vascular Disease Respiratory History: Denies: Hx Asthma, Hx Chronic Obstructive Pulmonary Disease (COPD), Hx Lung Cancer, Hx Pneumonia, Hx Pulmonary Embolism GI History: Denies: Hx Gall Bladder Disease, Hx Gastrointestinal Bleed, Hx Ulcer, Hx Urosepsis History: Denies: Hx Dialysis, Hx Kidney Stones, Hx Renal Disease Musculoskeletal History: Denies: Hx Arthritis, Hx Rheumatoid Arthritis, Hx Osteoporosis Sensory History: Denies: Hx Cataracts, Hx Contacts or Glasses, Hx Glaucoma, Hx Hearing Aid Opthamlomology History: Denies: Hx Cataracts, Hx Contacts or Glasses, Hx Glaucoma Neurological History: Denies: Hx Dementia, Hx Headaches, Hx Migraine, Hx Seizures, Hx Transient Ischemic Attacks (TIA) Psychiatric History: Denies: Hx Anxiety, Hx Depression, Hx Panic Disorder, Hx Schizophrenia, Hx Bipolar Disorder - Surgical History Surgery Procedure, Year, and Place: TONSILECTOMY 2008 Infectious Disease History: No Infectious Disease History: Denies: Traveled Outside the [place] in Last 30 Days - Family History Known Family History: Positive: Cardiac Disease, Hypertension, Other - ITP, Breast Cancer - Social History Alcohol Use: None Hx Substance Use: No Substance Use Type: Reports: None Hx Tobacco Use: No Smoking Status (MU): Never Smoked Tobacco Review of Systems Negative: Fever Negative: Chest Pain Negative: Shortness Of Breath Positive: Myalgia - right calf pain Positive: Paresthesia All Other Systems Reviewed And Are Negative: Yes Physical Exam Triage Information Reviewed: Yes Vital Signs On Initial Exam: Initial Vitals Temp Pulse Resp BP Pulse Ox 97.7 F 66 15 140/85 100 10/18/17 19:00 10/18/17 19:00 10/18/17 19:00 10/18/17 19:00 10/18/17 19:00 Vital Signs Reviewed: Yes Appearance: Positive: Well-Appearing Skin: Positive: Warm, Dry Head/Face: Positive: Normal Head/Face Inspection Eyes: Positive: Normal, Conjunctiva Clear Respiratory/Lung Sounds: Positive: Clear to Auscultation, Breath Sounds Present Cardiovascular: Positive: Normal, RRR Musculoskeletal: Positive: Strength/ROM Intact - right calf, Other - nontender back, neg SLR, sensation grossly intact, good pulses, capillary refill<2 secs. Negative: Fauzia Sign Right, Edema Right Neurological: Positive: Normal Psychiatric: Positive: Normal Diagnostics - Vital Signs Vital Signs Temp Pulse Resp BP Pulse Ox 10/18/17 19:00 97.7 F 66 15 140/85 100 - Laboratory Result Diagrams: 10/18/17 21:30 Lab Statement: Any lab studies that have been ordered have been reviewed, and results considered in the medical decision making process. - Ultrasound No standard instances Ultrasound Interpretation: No Acute Changes Ultrasound Interpretation Completed By: Radiologist Lower Extremity Course/Dx - Course Course Of Treatment: 42-year-old male presents with possible right leg blood clot. He states he has been having occasionally pain in right cald. he foot has been going numbness and tingling. He states feels pulsating in his foot. He denies any swelling. He sees sometimes his foot has been cramping. He is a runner. He denies any chest pressure or SOB. He is not a smoker. He denies any family history of blood clots. He denies any recent travel or surgeries. On exam nontender calf muscle. Neurovascularly intact. Negative Homans sign. Ultrasound negative. Electrolytes are normal. We will discharge to follow-up with primary. Patient understands and agrees with plan. - Diagnoses Differential Diagnosis/HQI/PQRI: Positive: DVT, Other - electrolytes anormality , lumbar radiculopathy Provider Diagnoses: Right leg paresthesias Discharge - Discharge Plan Condition: Good Disposition: HOME Patient Education Materials: Paresthesia (ED) Referrals: Raphael Serrano MD [Primary Care Provider] - Additional Instructions: Try Tylenol or ibuprofen for pain Follow up with primary Return to ED if develop any new or worsening symptoms
--- NOTE | 2017-10-18 21:23 | RAD ---
Indication: Right leg edema. Duplex Doppler sonography of the deep venous system of the right lower extremity deep venous system was performed. Bilaterally the common femoral veins appear patent and compressible. Right proximal greater saphenous vein, proximal deep femoral vein, femoral vein, popliteal vein, posterior tibial veins and peroneal veins appear patent and compressible. IMPRESSION: NO EVIDENCE OF DEEP VENOUS THROMBOSIS IS IDENTIFIED.
[2017-10-18 22:49] VITALS: BP 116/75
== END 2017-10-18 22:48 | disposition home or self-care (01) ==
LOC: ED 18:51
DX: R20.2 Paresthesia of skin (principal); Z88.1 Allergy status to other antibiotic agents; Z88.5 Allergy status to narcotic agent
CPT/HCPCS: 36415; 80053; 83735; 99282